=== PATIENT | male | born 1960 | race African-American/Black ===

== ENCOUNTER 2017-02-03 19:09 | Emergency (ER) | payer SELFPAY ==
[~2017-02-03] VITALS: Ht 180.3 cm; Wt 81.6 kg
[~2017-02-03 19:09] MED LIST: AMBIEN10 M1 PO; AMOXIL500 MG PO; ANAPROX DS550 MG PO; ASPI-COR81 M1 PO; ATIVAN0.5 MG PO; BACTRIM DS 8001 TA1 PO; CIPRO500 MG PO; CORTISPORIN SUS10 ML OT; DAYPRO600 M1 PO; FLONASE0.05 MG/AC NS; GLUCOTROL5 MG PO; HYDROCODONE BIT1 T11 PO; KEFLEX500 M1 PO; KEFLEX500 MG PO; LISINOPRIL5 MG PO; MELOXICAM15 MG PO; MOTRIN800 MG PO; NEURONTIN300 MG PO; NEURONTIN800 MG PO; NITROTAB0.4 MG SL; NOVOLOG 70/30 M10 ML SC; NOVOLOG 701 UNIT/0.0 SC; PENICILLIN VK500 MG PO; PRAVACHOL40 MG PO; PRINIVIL5 M1 PO; ROBAXIN500 MG PO; ROBAXIN750 MG PO; ROBITUSSIN AC 10 MG/ PO; ROBITUSSIN DM 110 ML PO; TAMIFLU75 MG PO; TENORMIN25 MG PO; TRAMADOL HCL50 MG PO; TRAMADOL50 MG PO; TRANSDERM-NITR0.1 MG; ULTRAM50 MG PO; VICODIN 5/500 505 MG PO; VICODIN 500 MG-1 TAB PO; VITAMIN D2000 IU PO; ZESTRIL2.5 MG PO; ZITHROMAX Z PA250 MG PO
[2017-02-03] MEDS ORDERED: BACTRIM DS 8001 TA1 PO (20:01)
[2017-02-03] MEDS ORDERED: CLINDAMYCIN HC300 MG PO (20:01)
== END 2017-02-03 20:15 | disposition home or self-care (01) ==
LOC: ED 19:09
DX: S00.86XA Insect bite (nonvenomous) of other part of head, initial encounter (principal); K02.9 Dental caries, unspecified; F17.200 Nicotine dependence, unspecified, uncomplicated; Z79.82 Long term (current) use of aspirin; Z79.899 Other long term (current) drug therapy; W57.XXXA Bitten or stung by nonvenomous insect and other nonvenomous arthropods, initial encounter; Y93.9 Activity, unspecified; Y92.9 Unspecified place or not applicable; Y99.9 Unspecified external cause status

== ENCOUNTER 2017-05-13 11:38 | Emergency (ER) | payer SELFPAY ==
[~2017-05-13] VITALS: Ht 180.3 cm; Wt 83.9 kg
[~2017-05-13 11:38] MED LIST changes: +CLINDAMYCIN HC300 MG PO
[2017-05-13] MEDS ORDERED: ACULAR 3ML 3 ML5 ML OPH (12:55)
[2017-05-13] MEDS ORDERED: Tobrex Ophth S2.5 ML OPH (12:55)
== END 2017-05-13 13:02 | disposition home or self-care (01) ==
LOC: ED 11:38
DX: S05.00XA Injury of conjunctiva and corneal abrasion without foreign body, unspecified eye, initial encounter (principal); Z79.82 Long term (current) use of aspirin; Z90.49 Acquired absence of other specified parts of digestive tract; X58.XXXA Exposure to other specified factors, initial encounter; Y93.89 Activity, other specified; Y92.9 Unspecified place or not applicable; Y99.9 Unspecified external cause status

== ENCOUNTER → 2017-11-09 | Outpatient (CLI) | payer OTHER ==
[~2017-11-09] MED LIST changes: +ACULAR 3ML 3 ML5 ML OPH; +Tobrex Ophth S2.5 ML OPH
[2017-11-09 14:45] LABS: BASO % 0.3 % (0.0-1.0); EOS # 0.1 10*3/uL (0.0-0.4); EOS % 0.9 % (1.0-4.0); HEMATOCRIT 32.6 % (42.0-52.0); HEMOGLOBIN 11.6 g/dl (14.0-18.0); LYMPH # 1.1 10*3/uL (1.3-4.4); LYMPH % 18.6 % (27.0-41.0); MEAN CELL VOLUME 81.3 fl (80.0-94.0); MEAN CORPUSCULAR HGB 28.9 pg (27.0-31.0); MEAN CORPUSCULAR HGB CONC 35.6 g/dl (33.0-37.0); MEAN PLATELET VOLUME 10.6 fl (9.6-12.3); MONO # 0.4 10*3/uL (0.1-1.0); MONO % 6.3 % (3.0-9.0); NEUT # 4.2 10*3/uL (2.3-7.9); NEUT % 73.6 % (47.0-73.0); PLATELET COUNT AUTOMATED 162 10*3/uL (130-400); RED BLOOD COUNT 4.01 10*6/uL (4.50-5.90); RED CELL DISTRI WIDTH 12.7 % (0-14.5); WHITE BLOOD COUNT 5.8 10*3/uL (4.8-10.8)
[2017-11-09 15:06] LABS: ALBUMIN 3.9 gm/dl (3.1-4.5); ALKALINE PHOSPHATASE 110 U/L (45-117); BUN 12 mg/dl (7-24); CHLORIDE 102 mmol/L (98-107); CREATININE 1.18 mg/dL (0.70-1.30); POTASSIUM 3.6 mmol/L (3.5-5.1); SGOT/AST 19 IU/L (3-35); SGPT/ALT 26 U/L (12-78); SODIUM 139 mmol/L (136-145)
== END ==
LOC: CT 14:00 → LAB 14:11
PROVIDERS: Urology
DX: D40.0 Neoplasm of uncertain behavior of prostate (principal); R53.83 Other fatigue; R31.9 Hematuria, unspecified

== ENCOUNTER → 2017-11-30 | Outpatient (CLI) | payer OTHER | END | disposition home or self-care (01) | LOC: RAD 14:44 | DX: R60.0 Localized edema (principal); E11.9 Type 2 diabetes mellitus without complications; I10 Essential (primary) hypertension ==

== ENCOUNTER → 2017-12-10 | Outpatient (CLI) | payer OTHER | END | disposition home or self-care (01) | LOC: CARD 10:30 | DX: I10 Essential (primary) hypertension (principal); L02.611 Cutaneous abscess of right foot; E11.9 Type 2 diabetes mellitus without complications; Z87.891 Personal history of nicotine dependence ==

== ENCOUNTER → 2018-01-19 | Outpatient (CLI) | payer OTHER | END | disposition home or self-care (01) | LOC: RAD 14:46 | DX: M25.461 Effusion, right knee (principal) ==

== ENCOUNTER → 2018-03-25 | Outpatient (CLI) | payer OTHER | END | disposition home or self-care (01) | LOC: MRI 12:58 | DX: Z01.818 Encounter for other preprocedural examination (principal); M71.21 Synovial cyst of popliteal space [Baker], right knee; S83.241A Other tear of medial meniscus, current injury, right knee, initial encounter; X58.XXXA Exposure to other specified factors, initial encounter; Y93.89 Activity, other specified; Y92.89 Other specified places as the place of occurrence of the external cause; Y99.8 Other external cause status ==

== ENCOUNTER → 2018-09-01 | Outpatient (CLI) | payer OTHER | END | disposition home or self-care (01) | LOC: LAB 13:48 | DX: I10 Essential (primary) hypertension (principal) ==

== ENCOUNTER → 2018-10-06 | Outpatient (CLI) | payer OTHER ==
[2018-10-06 13:19] LABS: BUN 16 mg/dl (7-24); CHLORIDE 113 mmol/L (98-107); CREATININE 1.32 mg/dL (0.70-1.30); SODIUM 144 mmol/L (136-145)
[2018-10-06 13:43] LABS: BILIRUBIN NEGATIVE (NEGATIVE); BLOOD 2+ (NEGATIVE); CLARITY SL CLOUDY (CLEAR); COLOR YELLOW (YELLOW); GLUCOSE TRACE (NEGATIVE); KETONE NEGATIVE (NEGATIVE); LEUKO ESTERASE NEGATIVE (NEGATIVE); NITRITE NEGATIVE (NEGATIVE); PH 5.5 (5.0-9.0); SPECIFIC GRAVITY 1.025 (1.005-1.030); UROBILINOGEN 0.2 E.U./dl (0.2-1.0)
[2018-10-06 14:05] LABS: BACTERIA TRACE; EPITHELIAL CELLS 0-2; HYALINE CAST 20-25; MUCOUS 1+; WBC 0-2 wbc/hpf (0-5)
[2018-10-07 05:09] LABS: TOTAL PROTEIN, SERUM 6.8 g/dL (6.0-8.5)
[2018-10-07 08:12] LABS: IMMUNOGLOBULIN G, QNT 1119 mg/dL (700-1600); IMMUNOGLOBULIN M, QNT 34 mg/dL (20-172); RHEUMATOID ARTHRITIS FACTOR <10.0 IU/mL (0.0-13.9)
[2018-10-07 09:08] LABS: CREATININE,URINE 103.1 mg/dL (Not Estab.)
[2018-10-07 11:06] LABS: HEPATITIS B SURFACE AG Negative (Negative); HEPATITIS C VIRUS ANTIBODY <0.1 s/co (0.0-0.9)
[2018-10-07 14:07] LABS: A/G RATIO 1.3 (0.7-1.7); ALBUMIN 3.9 g/dL (2.9-4.4); ALPHA-1-GLOBULIN 0.2 g/dL (0.0-0.4); ALPHA-2-GLOBULIN 0.6 g/dL (0.4-1.0); BETA GLOBULIN 0.9 g/dL (0.7-1.3); GAMMA GLOBULIN 1.2 g/dL (0.4-1.8); GLOBULIN, TOTAL 2.9 g/dL (2.2-3.9); M-SPIKE Not Observed g/dL (Not Observed)
[2018-10-07 15:09] LABS: ATYPICAL PANCA <1:20 titer (Neg:<1:20); CYTOPLASMIC (C-ANCA) <1:20 titer (Neg:<1:20)
[2018-10-10 11:04] LABS: GLOMERULAR BASEMENT AB 082719 3 units (0-20)
[2018-10-10 13:08] LABS: ALBUMIN, URINE 81.5 % (.); ALPHA-1-GLOBULIN, URINE 1.3 % (.); ALPHA-2-GLOBULIN, URINE 3.5 % (.); BETA GLOBULIN, URINE 7.5 % (.); GAMMA GLOBULIN, URINE 6.2 % (.); M-SPIKE, % Not Observed % (Not Observed); PROTEIN,TOTAL - URINE RANDOM 119.6 mg/dL (Not Estab.)
== END | disposition home or self-care (01) ==
LOC: US 09-19 10:30
PROVIDERS: Internal Medicine Nephrology
DX: N40.1 Benign prostatic hyperplasia with lower urinary tract symptoms (principal); N32.89 Other specified disorders of bladder; R80.9 Proteinuria, unspecified

== ENCOUNTER → 2018-12-02 | Outpatient (CLI) | payer OTHER ==
[2018-12-02 08:41] LABS: BILIRUBIN NEGATIVE (NEGATIVE); BLOOD 2+ (NEGATIVE); CLARITY CLEAR (CLEAR); COLOR YELLOW (YELLOW); GLUCOSE 3+ (NEGATIVE); KETONE NEGATIVE (NEGATIVE); LEUKO ESTERASE NEGATIVE (NEGATIVE); NITRITE NEGATIVE (NEGATIVE); PH 5.5 (5.0-9.0); UROBILINOGEN 0.2 E.U./dl (0.2-1.0)
[2018-12-02 08:51] LABS: URINE CREATININE RANDOM 66.8 mg/dL
[2018-12-02 08:59] LABS: BACTERIA TRACE; BUN 18 mg/dl (7-24); CHLORIDE 107 mmol/L (98-107); CREATININE 1.34 mg/dL (0.70-1.30); POTASSIUM 4.2 mmol/L (3.5-5.1); SODIUM 141 mmol/L (136-145)
[2018-12-03 09:11] LABS: CREATININE,URINE 62.8 mg/dL (Not Estab.); MICRO ALBUMIN/CRE RATIO 884.9 (0.0-30.0)
== END | disposition home or self-care (01) ==
LOC: LAB 08:12 → MRI 09:00
PROVIDERS: Internal Medicine
DX: N28.1 Cyst of kidney, acquired (principal); R10.31 Right lower quadrant pain; R80.9 Proteinuria, unspecified; Z90.49 Acquired absence of other specified parts of digestive tract

== ENCOUNTER → 2019-08-14 | Outpatient (CLI) | payer OTHER | END | disposition home or self-care (01) | LOC: NM 08:00 | DX: K21.9 Gastro-esophageal reflux disease without esophagitis (principal); E11.9 Type 2 diabetes mellitus without complications; I10 Essential (primary) hypertension; Z90.49 Acquired absence of other specified parts of digestive tract ==

== ENCOUNTER → 2020-01-22 | Outpatient (CLI) | payer OTHER | END | disposition home or self-care (01) | LOC: LAB 10:05 | DX: N18.3 Chronic kidney disease, stage 3 (moderate) (principal); R80.9 Proteinuria, unspecified ==

== ENCOUNTER → 2020-05-02 | Outpatient (CLI) | payer OTHER ==
[2020-05-02 10:05] LABS: BASO % 0.4 % (0.0-1.0); EOS # 0.1 10*3/uL (0.0-0.4); EOS % 1.1 % (1.0-4.0); HEMATOCRIT 36.2 % (42.0-52.0); LYMPH # 1.1 10*3/uL (1.3-4.4); LYMPH % 18.7 % (27.0-41.0); MEAN CELL VOLUME 84.2 fl (80.0-94.0); MEAN CORPUSCULAR HGB 28.6 pg (27.0-31.0); MEAN PLATELET VOLUME 11.2 fl (9.6-12.3); MONO # 0.3 10*3/uL (0.1-1.0); MONO % 5.7 % (3.0-9.0); NEUT # 4.2 10*3/uL (2.3-7.9); NEUT % 73.9 % (47.0-73.0); PLATELET COUNT AUTOMATED 179 10*3/uL (130-400); RED CELL DISTRI WIDTH 12.3 % (0-14.5); WHITE BLOOD COUNT 5.6 10*3/uL (4.8-10.8)
[2020-05-02 10:20] LABS: ALBUMIN 4.1 gm/dl (3.1-4.5); CREATININE 2.05 mg/dL (0.70-1.30); POTASSIUM 4.7 mmol/L (3.5-5.1); TOTAL PROTEIN 7.7 gm/dL (6.4-8.2)
[2020-05-02 10:23] LABS: URINE CREATININE RANDOM 51.8 mg/dL
[2020-05-02 11:20] LABS: BILIRUBIN NEGATIVE (NEGATIVE); BLOOD TRACE-INTACT (NEGATIVE); CLARITY CLEAR (CLEAR); COLOR YELLOW (YELLOW); GLUCOSE 3+ (NEGATIVE); KETONE NEGATIVE (NEGATIVE); LEUKO ESTERASE NEGATIVE (NEGATIVE); NITRITE NEGATIVE (NEGATIVE); PH 6.5 (5.0-9.0); UROBILINOGEN 0.2 E.U./dl (0.2-1.0)
== END | disposition home or self-care (01) ==
LOC: LAB 09:31
PROVIDERS: Internal Medicine Nephrology
DX: N30.00 Acute cystitis without hematuria (principal)

== ENCOUNTER → 2020-05-13 | Outpatient (CLI) | payer OTHER ==
[2020-05-13 11:49] LABS: BASO % 0.7 % (0.0-1.0); EOS # 0.1 10*3/uL (0.0-0.4); EOS % 0.9 % (1.0-4.0); HEMATOCRIT 33.6 % (42.0-52.0); LYMPH % 18.5 % (27.0-41.0); MEAN CELL VOLUME 83.2 fl (80.0-94.0); MEAN CORPUSCULAR HGB 28.5 pg (27.0-31.0); MEAN CORPUSCULAR HGB CONC 34.2 g/dl (33.0-37.0); MEAN PLATELET VOLUME 10.2 fl (9.6-12.3); MONO # 0.3 10*3/uL (0.1-1.0); MONO % 6.1 % (3.0-9.0); NEUT # 4.1 10*3/uL (2.3-7.9); NEUT % 73.6 % (47.0-73.0); PLATELET COUNT AUTOMATED 163 10*3/uL (130-400); RED BLOOD COUNT 4.04 10*6/uL (4.50-5.90); RED CELL DISTRI WIDTH 11.9 % (0-14.5); WHITE BLOOD COUNT 5.6 10*3/uL (4.8-10.8)
[2020-05-13 12:14] LABS: ALBUMIN 4.1 gm/dl (3.1-4.5); BUN 24 mg/dl (7-24); CHLORIDE 111 mmol/L (98-107); CREATININE 1.39 mg/dL (0.70-1.30); POTASSIUM 4.4 mmol/L (3.5-5.1); SGOT/AST 13 IU/L (3-35); SGPT/ALT 25 U/L (12-78); SODIUM 141 mmol/L (136-145)
[2020-05-13 12:15] LABS: ALKALINE PHOSPHATASE 88 U/L (45-117); TOTAL PROTEIN 7.6 gm/dL (6.4-8.2)
== END | disposition home or self-care (01) ==
LOC: LAB 11:22
PROVIDERS: Internal Medicine Nephrology
DX: N17.9 Acute kidney failure, unspecified (principal); R31.29 Other microscopic hematuria

== ENCOUNTER 2020-08-13 08:39 | Emergency (ER) | payer OTHER ==
[~2020-08-13] VITALS: Wt 90.7 kg
[2020-08-13] MEDS ORDERED: PRAVACHOL40 MG PO (08:55)
[2020-08-13] MEDS ORDERED: INVOKANA100 M1 PO (08:55)
[2020-08-13] MEDS ORDERED: CARTIA XT240 MG PO (08:56)
[2020-08-13] MEDS ORDERED: LYRICA150 M1 PO (08:57)
[2020-08-13] MEDS ORDERED: KLOR-CON M2020 ME1 PO (08:57)
[2020-08-13] MEDS ORDERED: FINASTERIDE5 M1 PO (08:58)
[2020-08-13] MEDS ORDERED: FUROSEMIDE40 MG PO (08:58)
[2020-08-13] MEDS ORDERED: LYRICA50 M1 PO (09:00)
[2020-08-13] MEDS ORDERED: OMEPRAZOLE40 MG PO (09:01)
[2020-08-13] MEDS ORDERED: NORCO 5-325 TA1 EACH PO (11:04)
== END 2020-08-13 11:29 | disposition home or self-care (01) ==
LOC: ED 08:39
DX: M25.851 Other specified joint disorders, right hip (principal); I25.10 Atherosclerotic heart disease of native coronary artery without angina pectoris; E11.9 Type 2 diabetes mellitus without complications; Z79.82 Long term (current) use of aspirin; Z79.4 Long term (current) use of insulin; Z79.899 Other long term (current) drug therapy

== ENCOUNTER → 2021-08-04 | Outpatient (CLI) | payer OTHER ==
[~2021-08-04] MED LIST changes: +CARTIA XT240 MG PO; +FINASTERIDE5 M1 PO; +FUROSEMIDE40 MG PO; +INVOKANA100 M1 PO; +KLOR-CON M2020 ME1 PO; +LYRICA150 M1 PO; +LYRICA50 M1 PO; +NORCO 5-325 TA1 EACH PO; +OMEPRAZOLE40 MG PO
== END | disposition home or self-care (01) ==
LOC: RAD 07:08
PROVIDERS: ATTEND Internal Medicine
DX: M25.78 Osteophyte, vertebrae (principal); M54.6 Pain in thoracic spine

== ENCOUNTER → 2021-08-06 | Outpatient (CLI) | payer OTHER | END | disposition home or self-care (01) | LOC: LAB 08:55 | PROVIDERS: ATTEND Internal Medicine | DX: N18.30 Chronic kidney disease, stage 3 unspecified (principal) ==

== ENCOUNTER → 2022-11-11 | Outpatient (CLI) | payer OTHER ==
[2022-11-11 15:42] LABS: BASO # 0.1 10*3/uL (0.0-0.1); BASO % 0.7 % (0.0-1.0); EOS # 0.3 10*3/uL (0.0-0.4); EOS % 3.8 % (1.0-4.0); HEMATOCRIT 33.9 % (42.0-52.0); LYMPH # 1.1 10*3/uL (1.3-4.4); LYMPH % 15.9 % (27.0-41.0); MEAN CELL VOLUME 82.9 fl (80.0-94.0); MEAN CORPUSCULAR HGB 29.6 pg (27.0-31.0); MEAN CORPUSCULAR HGB CONC 35.7 g/dl (33.0-37.0); MEAN PLATELET VOLUME 10.8 fl (9.6-12.3); MONO # 0.4 10*3/uL (0.1-1.0); MONO % 6.2 % (3.0-9.0); NEUT # 5.1 10*3/uL (2.3-7.9); NEUT % 73.1 % (47.0-73.0); PLATELET COUNT AUTOMATED 173 10*3/uL (130-400); RED BLOOD COUNT 4.09 10*6/uL (4.50-5.90); WHITE BLOOD COUNT 6.9 10*3/uL (4.8-10.8)
[2022-11-11 15:59] LABS: FREE T4 1.12 ng/dl (0.89-1.76); POTASSIUM 4.6 mmol/L (3.4-5.1); THYROID STIM HORMONE (HS) 1.025 uIU/ml (0.550-4.780)
== END | disposition home or self-care (01) ==
LOC: LAB 14:51
PROVIDERS: ATTEND Internal Medicine
DX: R06.02 Shortness of breath (principal)

== ENCOUNTER → 2022-11-25 | Outpatient (CLI) | payer OTHER | END | disposition home or self-care (01) | LOC: CARD 02:27 | PROVIDERS: ATTEND Internal Medicine | DX: G45.9 Transient cerebral ischemic attack, unspecified (principal); I51.7 Cardiomegaly ==